=== PATIENT | female | born 1955 | race Two or more races ===

== ENCOUNTER 2018-04-21 07:51 | Outpatient (CLI) | payer OTHER ==
[~2018-04-21 07:51] MED LIST: SYNTHROID100 MCG; TOPROL XL50 MG
== END 2018-04-21 07:59 | disposition home or self-care (01) ==
LOC: SONOGRAMA 07:51
DX: E04.1 Nontoxic single thyroid nodule (principal)

== ENCOUNTER → 2018-06-19 | Outpatient (CLI) | payer OTHER | END | disposition home or self-care (01) | LOC: NUCLEAR 11:59 | DX: M81.0 Age-related osteoporosis without current pathological fracture (principal) ==